=== PATIENT | male | born 1960 | race Caucasian/White ===

== ENCOUNTER 2022-08-02 16:10 | Emergency (ER) | payer OTHER ==
[~2022-08-02] VITALS: Ht 175.3 cm; Wt 88.5 kg
[~2022-08-02 16:10] MED LIST: CYCL10 PO; HYDACE5 PO; NAPR500 PO
[2022-08-02] MEDS ORDERED: LIDO700A20 TOP (18:06)
[2022-08-02] MEDS ORDERED: ONDA4 PO (18:06)
[2022-08-02] MEDS ORDERED: KETO10 PO (18:06)
== END 2022-08-02 18:24 | disposition home or self-care (01) ==
LOC: ER 16:10
DX: M54.42 Lumbago with sciatica, left side (principal); W01.0XXA Fall on same level from slipping, tripping and stumbling without subsequent striking against object, initial encounter; F17.200 Nicotine dependence, unspecified, uncomplicated
CPT/HCPCS: A9270; J1885